=== PATIENT | female | born 1945 | race Caucasian/White ===

== ENCOUNTER 2019-05-04 06:38 | Inpatient (IN) ==
[2019-05-04] MEDS ORDERED: Clindamycin 900 MG/50 ML 900 MG/50 ML IV.SOLN IVPB ONE ×2 (07:31→16:00)
[2019-05-04] MEDS ORDERED: Naloxone 0.4 MG/ML INJ IVP PRN ×2 (07:39→10:30)
[2019-05-04] MEDS ORDERED: *HR* Promethazine 25 MG/ML VIAL IVP PRN (07:39)
[2019-05-04] MEDS ORDERED: Ondansetron 4 MG/2 ML VIAL IVP ONE (07:39)
[2019-05-04] MEDS ORDERED: *HR* Labetalol 20 MG/4 ML SYRINGE IVP PRN (07:39)
[2019-05-04] MEDS ORDERED: Gabapentin 100 MG CAPSULE PO ONE (07:39)
[2019-05-04] MEDS ORDERED: *HR* HYDROmorphone (PF) 1 MG/ML SYRINGE IVP PRN (07:39)
[2019-05-04] MEDS ORDERED: Ringers Solution, Lactated 1,000 ML IVC SCH ×3 (07:45→10:45)
[2019-05-04] MEDS ORDERED: Lidocaine -MPF 2% 2 ML VIAL ONE (08:27)
[2019-05-04] MEDS ORDERED: *HR* FentaNYL (PF) 100 MCG/2 ML VIAL ONE (08:28)
[2019-05-04] MEDS ORDERED: *HR* Midazolam HCl 2 MG/2 ML VIAL ONE (08:28)
[2019-05-04] MEDS ORDERED: Lidocaine HCL 4 ML Topical Solution (Laryng-O-Jet Kit Sterile Pak) TP ONE (08:29)
[2019-05-04] MEDS ORDERED: *HR* Propofol 200 MG/20 ML VIAL IVP ONE (08:31)
[2019-05-04] MEDS ORDERED: *HR* Rocuronium Bromide 50 MG/5 ML VIAL ONE (08:31)
[2019-05-04] MEDS ORDERED: ceFAZolin 1,000 MG, Sodium Chloride IRRigation 1,000 ML IR ONE (08:45)
[2019-05-04] MEDS ORDERED: EPHEDrine 50 MG/ML VIAL ONE (09:09)
[2019-05-04] MEDS ORDERED: *HR* PHENYLEPHRINE 1,000 MCG/10 ML SYRINGE IVP ONE (09:31)
[2019-05-04] MEDS ORDERED: Ondansetron 4 MG/2 ML VIAL ONE (09:35)
[2019-05-04] MEDS ORDERED: Dexamethasone 4 MG/ML VIAL ONE (09:35)
[2019-05-04] MEDS ORDERED: Neostigmine Methylsulfate 3 MG/3 ML SYRINGE ONE (10:01)
[2019-05-04] MEDS ORDERED: Ketorolac 30 MG/ML VIAL ONE (10:05)
[2019-05-04] MEDS ORDERED: *HR* HYDROcodone/Acet 5/325 mg TABLET PO PRN (10:30)
[2019-05-04] MEDS ORDERED: Ondansetron 4 MG/2 ML VIAL IVP PRN (10:30)
[2019-05-04] MEDS: *HR* OxyCODONE Immed Rel 5 MG TABLET PO PRN ×2 (11:07→11:20)
[2019-05-05 09:44] LABS: Basophils % 0.1 %; Eosinophils % 0.2 %; Hematocrit 41.8 % (35.3-44.9); Hemoglobin 13.7 g/dL (11.5-15.4); Immature Granulocytes % 0.3 % (0-4); Lymphocytes # 2.4 K/mcL (0.6-4.6); Mean Corpuscular HGB Conc 32.8 g/dL (31.6-35.5); Mean Corpuscular Volume 100.7 fL (83.0-100.0); Mean Platelet Volume 9.3 fL (9.4-12.4); Monocytes # 0.9 K/mcL (0.0-1.3); Monocytes % 8.9 %; Neutrophils # 6.6 K/mcL (1.6-8.9); Platelet Count 136 K/mcL (140-400); Red Blood Count 4.15 M/mcL (3.82-4.97); Red Cell Distribution Width 12.7 % (11.5-14.5); Segmented Neutrophils % 66.5 %; White Blood Count 9.9 K/mcL (4.3-11.1)
[2019-05-05 10:00] LABS: BUN/Creatinine Ratio 17 (6-26); Blood Urea Nitrogen 14 mg/dL (8-23); eGFR For African Americans > 60 (> 60); eGFR For Non-African Americans > 60 (> 60)
[2019-05-05 16:37] VITALS: BP 144/75
== END 2019-05-05 16:37 | disposition home or self-care (01) | DRG 748 ==
LOC: SAMDAY 06:38 → 1NENUOBS 11:50
PROVIDERS: ADMIT Obstetrics & Gynecology; ATTEND Obstetrics & Gynecology